=== PATIENT | female | born 1975 | race Caucasian/White ===

== ENCOUNTER → 2018-08-21 16:23 | Outpatient (CLI) | payer BC, SELFPAY ==
[2018-08-21 19:29] LABS: Free T3, Triiodothyronine Free 2.88 pg/mL (2.77-5.27); Free T4, Direct Thyroxine 1.18 ng/dL (0.78-2.19)
[2018-08-21 19:42] LABS: Thyroid Stimulating Hormone 0.36 uIU/mL (0.47-4.68)
== END ==
PROVIDERS: PCP Internal Medicine; Visit Provider Internal Medicine
DX: E03.9 Hypothyroidism, unspecified (principal)
CPT/HCPCS: 36415; 84439; 84443; 84479; 84481

== ENCOUNTER → 2018-11-20 10:37 | Outpatient (CLI) | payer BC, SELFPAY ==
[2018-11-20 11:45] LABS: Free T3, Triiodothyronine Free 2.52 pg/mL (2.77-5.27); Free T4, Direct Thyroxine 0.98 ng/dL (0.78-2.19)
== END ==
PROVIDERS: PCP Internal Medicine; Visit Provider Family Medicine
DX: E03.9 Hypothyroidism, unspecified (principal)
CPT/HCPCS: 36415; 84439; 84443; 84481

== ENCOUNTER → 2018-12-14 11:06 | Outpatient (CLI) | payer BC, SELFPAY ==
--- NOTE | 2018-12-14 | DI.MG.S_ITS ---
BILATERAL DIGITAL SCREENING MAMMOGRAM 3D/2D WITH CAD: 12/14/2018 CLINICAL: Routine screening. Family history of breast cancer. Comparison is made to exams dated: 10/05/2016 mammogram and 09/16/2016 mammogram - [facility]. The tissue of both breasts is heterogeneously dense. This may lower the sensitivity of mammography. Current study was also evaluated with a Computer Aided Detection (CAD) system. There is an oval low density asymmetry with an indistinct margin in the left breast at 11 o'clock posterior depth. No other significant masses, calcifications, or other findings are seen in either breast. IMPRESSION: INCOMPLETE: NEEDS ADDITIONAL IMAGING EVALUATION The oval low density asymmetry in the left breast is indeterminate. Mediolateral and spot compression views as well as additional views with possible ultrasound are recommended. This exam was interpreted at Station ID: [id number]. NOTE: For mammograms, a report in lay terms will be sent to the patient. Approximately 15% of breast malignancies will not be visualized mammographically. In the management of a palpable breast mass, a negative mammogram must not discourage biopsy of a clinically suspicious lesion. Electronically Signed By: Yordy miguel/cayla:12/14/2018 12:11:42 copy to: ANGELA CAZARES letter sent: Additional Imaging Needed ACR BI-RADS Category 0: Incomplete 3340F
== END ==
PROVIDERS: PCP Internal Medicine; Visit Provider Student in an Organized Health Care Education/Training Program
DX: Z12.31 Encounter for screening mammogram for malignant neoplasm of breast (principal); Z80.3 Family history of malignant neoplasm of breast
CPT/HCPCS: 77063; 77067

== ENCOUNTER → 2019-01-01 14:19 | Outpatient (CLI) | payer BC, SELFPAY ==
--- NOTE | 2019-01-01 14:23 | DI.MG.S_ITS ---
UNILATERAL LEFT DIGITAL DIAGNOSTIC MAMMOGRAM 3D/2D WITH ADDITIONAL VIEWS: 01/01/2019 CLINICAL: Additional evaluation requested from prior study. Comparison is made to exams dated: 12/14/2018 mammogram, 10/05/2016 mammogram, and 09/16/2016 mammogram - [facility]. The tissue of left breast is heterogeneously dense. This may lower the sensitivity of mammography. There is an oval low density asymmetry with an indistinct margin in the left breast at 10 o'clock posterior depth. This is less prominent. No other significant masses or calcifications are seen in the breast. IMPRESSION: INCOMPLETE: NEEDS ADDITIONAL IMAGING EVALUATION The oval low density asymmetry in the left breast resembles a lymph node, or cyst and is probably benign. Please see corresponding ultrasound report for more details. A follow-up mammogram in 6 months is recommended to demonstrate stability. Findings and recommendations were conveyed to the patient. This exam was interpreted at Station ID: [id number]. NOTE: For mammograms, a report in lay terms will be sent to the patient. Approximately 15% of breast malignancies will not be visualized mammographically. In the management of a palpable breast mass, a negative mammogram must not discourage biopsy of a clinically suspicious lesion. Electronically Signed By: Melanie box/:01/01/2019 15:40:26 copy to: ANGELA CAZARES ACR BI-RADS Category 0: Incomplete 3340F
--- NOTE | 2019-01-01 14:23 | DI.US.S_ITS ---
LIMITED ULTRASOUND OF LEFT BREAST: 01/01/2019 CLINICAL: Additional evaluation requested from prior study. Comparison is made to exams dated: 01/01/2019 mammogram, 12/14/2018 mammogram, 10/05/2016 mammogram, and 09/16/2016 mammogram - [facility]. Ultrasound of the left breast inner aspect was performed. There is a benign 3 mm cyst in the left breast at 6 o'clock posterior depth. This cyst is anechoic with posterior acoustic enhancement. There also is a benign 5 mm oval cyst in the left breast at 11 o'clock anterior depth. This oval cyst is anechoic with posterior acoustic enhancement. No sonographic abnormalities to correspond to the 3 mm asymmetry seen on mammogram. IMPRESSION: BENIGN No sonographic finding to correspond to the mammographic finding. Other findings on ultrasound are incidental and benign. There is no sonographic evidence of malignancy. The 3 mm cyst in the left breast at 6 o'clock posterior depth is consistent with a simple cyst and is benign. The 5 mm oval cyst in the left breast at 11 o'clock anterior depth is consistent with a simple cyst and is benign. A follow-up mammogram in 6 months is recommended to demonstrate stability. Findings and recommendations were conveyed to the patient. This exam was interpreted at Station ID: [id number]. Electronically Signed By: Melanie box/:01/01/2019 15:50:04 copy to: ANGELA CAZARES letter sent: Followup Recommended Ultrasound BI-RADS: 2 Benign
== END ==
PROVIDERS: Family Provider Specialist; Visit Provider Student in an Organized Health Care Education/Training Program
DX: R92.8 Other abnormal and inconclusive findings on diagnostic imaging of breast (principal); N60.02 Solitary cyst of left breast
CPT/HCPCS: 76642; 77065; G0279

== ENCOUNTER → 2019-02-04 08:37 | Outpatient (CLI) | payer BC, SELFPAY ==
[2019-02-04 10:14] LABS: Alanine Aminotransferase 30 IU/L (9-52); Albumin 4.4 g/dL (3.5-5.0); Albumin Globulin Ratio 1.4 (1.0-2.8); Alkaline Phosphatase 52 U/L (38-126); Aspartate Aminotransferase 25 IU/L (14-36); Bilirubin Total 0.6 mg/dL (0.2-1.3); Bilirubin Unconjugated 0.5 mg/dL (0.0-1.1); Cholesterol 158 mg/dL (140-199); Globulin 3.1 g/dL (1.7-4.1); HDL Cholesterol 48 mg/dL (40-60); HEMOLYSIS < 15 (0-50); LDL Cholesterol Calculated 90 mg/dL (<100); Total Protein 7.5 g/dL (6.3-8.2); Triglycerides 99 mg/dL (35-150)
[2019-02-04 11:10] LABS: Vitamin D 25 Hydroxy (D3) 56.7 ng/mL (30.0-100.0)
== END ==
PROVIDERS: PCP Student in an Organized Health Care Education/Training Program; Visit Provider Student in an Organized Health Care Education/Training Program
DX: E78.2 Mixed hyperlipidemia (principal); R23.2 Flushing; Z13.220 Encounter for screening for lipoid disorders; E55.9 Vitamin D deficiency, unspecified
CPT/HCPCS: 36415; 80061; 80076; 82306

== ENCOUNTER → 2019-04-19 15:02 | Outpatient (CLI) | payer BC, SELFPAY ==
[2019-04-19 16:57] LABS: Free T4, Direct Thyroxine 0.91 ng/dL (0.78-2.19)
[2019-04-19 17:11] LABS: Thyroid Stimulating Hormone 1.62 uIU/mL (0.47-4.68)
== END ==
PROVIDERS: PCP Family Medicine; Visit Provider Student in an Organized Health Care Education/Training Program
DX: E03.9 Hypothyroidism, unspecified (principal)
CPT/HCPCS: 36415; 84439; 84443; 84481

== ENCOUNTER → 2019-10-28 08:10 | Outpatient (CLI) | payer BC, SELFPAY ==
--- NOTE | 2019-10-28 08:11 | DI.MG.S_ITS ---
UNILATERAL LEFT DIGITAL DIAGNOSTIC MAMMOGRAM 3D/2D SHORT-TERM FOLLOW-UP: 10/28/2019 CLINICAL: Patient returns for a 6 month follow up of the left breast. Comparison is made to exams dated: 01/01/2019 mammogram, 12/14/2018 mammogram, and 10/05/2016 mammogram - [facility]. The tissue of left breast is heterogeneously dense. This may lower the sensitivity of mammography. There is a new 0.5 cm oval low density focal asymmetry with an obscured, indistinct, and circumscribed margin in the left breast at 2 o'clock posterior depth. There also is an oval low density focal asymmetry with a circumscribed margin in the left breast at 11 o'clock posterior depth. This is not significantly changed. No other significant masses or calcifications are seen in the breast. IMPRESSION: INCOMPLETE: NEEDS ADDITIONAL IMAGING EVALUATION The new 0.5 cm oval low density focal asymmetry in the left breast at 2 o'clock posterior depth is indeterminate. An ultrasound is recommended. The oval low density focal asymmetry in the left breast at 11 o'clock posterior depth is probably benign. A follow-up ultrasound in 6 months is recommended. This exam was interpreted at Station ID: [id number]. NOTE: For mammograms, a report in lay terms will be sent to the patient. Approximately 15% of breast malignancies will not be visualized mammographically. In the management of a palpable breast mass, a negative mammogram must not discourage biopsy of a clinically suspicious lesion. Electronically Signed By: Yordy miguel/cayla:10/28/2019 09:19:13 copy to: ANGELA JIMENEZ BI-RADS Category 0: Incomplete 3340F
--- NOTE | 2019-10-28 10:26 | DI.US.S_ITS ---
LIMITED ULTRASOUND OF LEFT BREAST: 10/28/2019 CLINICAL: Patient returns today to evaluate a density in the left breast. Comparison is made to exams dated: 10/28/2019 mammogram, 01/01/2019 mammogram, 12/14/2018 mammogram, 10/05/2016 mammogram, and 09/16/2016 mammogram - [facility]. Color flow and real-time ultrasound of the left breast 2-3 o'clock region were performed on the areas of interest. There is a 0.8 cm x 0.6 cm x 0.5 cm oval complicated cyst with a septated internal wall in the left breast at 3 o'clock middle depth. This oval complicated cyst is hypoechoic with internal echoes and posterior acoustic enhancement. This likely correlates with mammography findings. Color flow imaging demonstrates that there is no vascularity present. IMPRESSION: PROBABLY BENIGN The 0.8 cm x 0.6 cm x 0.5 cm oval complicated cyst in the left breast is consistent with a complicated cyst and is probably benign. Follow-up mammogram and ultrasound in 6 months is recommended. A follow-up mammogram and an ultrasound in 6 months is recommended to demonstrate stability. This exam was interpreted at Station ID: [id number]. Electronically Signed By: Yordy miguel/:10/28/2019 10:48:55 copy to: ANGELA CAZARES letter sent: Followup Recommended Ultrasound BI-RADS: 3 Probably benign
[2019-10-28 16:53] LABS: Add Manual Diff / Slide Review NO; Basophils Absolute Auto 0 /uL (0-100); Basophils Percent Auto 0.6 % (0-2); Eosinophils Absolute Auto 100 /uL (0-450); Eosinophils Percent Auto 1.5 % (2-4); Hematocrit 39.6 % (36-46); Hemoglobin 13.4 g/dL (12.0-16.0); Lymphocytes Absolute Auto 2300 /uL (1100-4500); Lymphocytes Percent Auto 34.4 % (25-40); Mean Corpuscular HGB Conc 33.9 % (30-36); Mean Corpuscular Hemoglobin 32.1 PG (26-34); Mean Corpuscular Volume 94.8 fL (80-100); Monocytes Absolute Auto 600 /uL (0-900); Monocytes Percent Auto 8.1 % (3-14); Neutrophils Absolute Auto 3800 /uL (1500-7000); Neutrophils Percent Auto 55.4 % (50-75); Platelet Count 232 X10^3/uL (150-400); Red Blood Cell Count 4.18 X10^6/uL (4.0-5.2); White Blood Cell Count 6.8 X10^3/uL (4.5-11.0)
[2019-10-28 17:28] LABS: HEMOLYSIS < 15 (0-50); Iron 152 ug/dL (37-170)
[2019-10-28 17:40] LABS: Percent Iron Saturation 58 % (15-50); Total Iron Binding Capacity 261 ug/dL (265-497); Transferrin 214 mg/dL (206-381)
[2019-10-28 17:46] LABS: Vitamin D 25 Hydroxy (D3) 52.1 ng/mL (30.0-100.0)
[2019-10-28 17:48] LABS: Free T3, Triiodothyronine Free 3.31 pg/mL (2.77-5.27); Free T4, Direct Thyroxine 0.91 ng/dL (0.78-2.19)
[2019-10-28 18:01] LABS: Thyroid Stimulating Hormone 1.15 uIU/mL (0.47-4.68)
[2019-10-28 18:05] LABS: Ferritin 75.6 ng/mL (6.27-137)
[2019-10-28 18:19] LABS: Vitamin B12 665 pg/mL (239-931)
== END ==
PROVIDERS: Nurse Practitioner; PCP Student in an Organized Health Care Education/Training Program; Visit Provider Student in an Organized Health Care Education/Training Program
DX: R92.8 Other abnormal and inconclusive findings on diagnostic imaging of breast (principal); N60.02 Solitary cyst of left breast; D51.3 Other dietary vitamin B12 deficiency anemia; E03.9 Hypothyroidism, unspecified; N80.3 Endometriosis of pelvic peritoneum; N95.1 Menopausal and female climacteric states; R53.83 Other fatigue
CPT/HCPCS: 36415; 76642; 77065; 82306; 82607; 82728; 83540; 83550; 84439; 84443; 84481; 85025; G0279

== ENCOUNTER → 2020-02-28 09:42 | Outpatient (CLI) | payer BC, SELFPAY ==
[2020-02-28 11:40] LABS: Free T3, Triiodothyronine Free 2.97 pg/mL (2.77-5.27); Free T4, Direct Thyroxine 1.08 ng/dL (0.78-2.19)
[2020-02-28 11:53] LABS: Thyroid Stimulating Hormone 0.58 uIU/mL (0.47-4.68)
== END ==
PROVIDERS: PCP Family Medicine; Referring Provider Family Medicine; Visit Provider Family Medicine
DX: E03.9 Hypothyroidism, unspecified (principal)
CPT/HCPCS: 36415; 84439; 84443; 84481

== ENCOUNTER → 2020-08-14 09:05 | Outpatient (CLI) | payer OTHER, SELFPAY ==
[2020-08-14 09:48] LABS: Add Manual Diff / Slide Review NO; Basophils Absolute Auto 0 /uL (0-100); Basophils Percent Auto 0.6 % (0-2); Eosinophils Absolute Auto 100 /uL (0-450); Eosinophils Percent Auto 1.7 % (2-4); Hematocrit 39.3 % (36-46); Hemoglobin 13.2 g/dL (12.0-16.0); Lymphocytes Absolute Auto 2200 /uL (1100-4500); Lymphocytes Percent Auto 33.8 % (25-40); Mean Corpuscular HGB Conc 33.6 % (30-36); Mean Corpuscular Hemoglobin 31.9 PG (26-34); Mean Corpuscular Volume 94.9 fL (80-100); Monocytes Absolute Auto 500 /uL (0-900); Monocytes Percent Auto 7.4 % (3-14); Neutrophils Absolute Auto 3700 /uL (1500-7000); Neutrophils Percent Auto 56.5 % (50-75); Platelet Count 225 X10^3/uL (150-400); Red Blood Cell Count 4.14 X10^6/uL (4.0-5.2); Red Cell Distribution Width 12.7 % (11.6-14.8); White Blood Cell Count 6.5 X10^3/uL (4.5-11.0)
[2020-08-14 10:31] LABS: Free T4, Direct Thyroxine 1.29 ng/dL (0.78-2.19)
== END ==
PROVIDERS: PCP Family Medicine; Referring Provider Specialist; Visit Provider Specialist
DX: E03.9 Hypothyroidism, unspecified (principal)
CPT/HCPCS: 36415; 84439; 84443; 84481; 85025

== ENCOUNTER → 2020-09-01 08:39 | Outpatient (CLI) | payer OTHER, SELFPAY ==
--- NOTE | 2020-09-01 08:40 | DI.MG.S_ITS ---
BILATERAL DIGITAL DIAGNOSTIC MAMMOGRAM 3D/2D SHORT-TERM FOLLOW-UP: 09/01/2020 CLINICAL: Patient returns for a 6 month follow up of the left breast, due for bilateral exam. Comparison is made to exams dated: 10/28/2019 mammogram, 01/01/2019 mammogram, and 12/14/2018 mammogram - [facility]. The tissue of both breasts is heterogeneously dense. This may lower the sensitivity of mammography. There is a 0.5 cm oval low density focal asymmetry with an obscured, indistinct, and circumscribed margin in the left breast at 2 o'clock posterior depth. This is not significantly changed. There also is an oval low density focal asymmetry with a circumscribed margin in the left breast at 11 o'clock posterior depth. This is not significantly changed. No other significant masses, calcifications, or other findings are seen in either breast. IMPRESSION: INCOMPLETE: NEEDS ADDITIONAL IMAGING EVALUATION The 0.5 cm oval low density focal asymmetry in the left breast at 2 o'clock posterior depth is indeterminate. An ultrasound is recommended for further evaluation and is scheduled to immediately follow this study. The oval low density focal asymmetry in the left breast at 11 o'clock posterior depth is probably benign. Further evaluation with sonogram is recommended which is scheduled to immediately follow this examination. This exam was interpreted at Station ID: [id number]. NOTE: For mammograms, a report in lay terms will be sent to the patient. Approximately 15% of breast malignancies will not be visualized mammographically. In the management of a palpable breast mass, a negative mammogram must not discourage biopsy of a clinically suspicious lesion. Electronically Signed By: Henri Diaz M.D. aty/:09/01/2020 09:21:57 copy to: Romario Thompson [facility] BI-RADS Category 0: Incomplete 3340F
--- NOTE | 2020-09-01 08:40 | DI.US.S_ITS ---
ULTRASOUND OF LEFT BREAST: 09/01/2020 CLINICAL: 6 month follow-up of cysts. Comparison is made to exams dated: 09/01/2020 mammogram, 10/28/2019 ultrasound, 10/28/2019 mammogram, 01/01/2019 ultrasound, 01/01/2019 mammogram, and 12/14/2018 mammogram - [facility]. Color flow and real-time ultrasound of the left breast were performed. Batista scale images of the real-time examination were reviewed. There is a 0.7 cm x 0.7 cm x 0.3 cm oval complicated cyst with a septated internal wall in the left breast at 3 o'clock middle depth 6 cm from the nipple. This oval complicated cyst is hypoechoic with internal echoes and posterior acoustic enhancement. This abnormality is not significantly changed and correlates with mammography findings. Color flow imaging demonstrates that there is no vascularity present. IMPRESSION: PROBABLY BENIGN The 0.7 cm x 0.7 cm x 0.3 cm oval complicated cyst in the left breast is consistent with a complicated cyst and is probably benign. A follow-up mammogram and an ultrasound in 12 months is recommended to document continued stability. Findings and recommendations were conveyed to the patient during today's evaluation. This exam was interpreted at Station ID: [id number]. Electronically Signed By: Henri Diaz M.D. aty/:09/01/2020 19:38:02 copy to: Romario Thompson letter sent: Followup Recommended Ultrasound BI-RADS: 3 Probably benign
== END ==
PROVIDERS: PCP Family Medicine; Referring Provider Specialist; Visit Provider Specialist
DX: R92.8 Other abnormal and inconclusive findings on diagnostic imaging of breast (principal); N60.02 Solitary cyst of left breast
CPT/HCPCS: 76642; 77066; G0279

== ENCOUNTER → 2020-10-26 12:20 | Outpatient (CLI) | payer OTHER, SELFPAY ==
[2020-10-26 13:43] LABS: Free T3, Triiodothyronine Free 4.36 pg/mL (2.77-5.27); Free T4, Direct Thyroxine 1.81 ng/dL (0.78-2.19)
[2020-10-26 13:57] LABS: Thyroid Stimulating Hormone < 0.015 uIU/mL (0.47-4.68)
== END ==
PROVIDERS: PCP Family Medicine; Referring Provider Family Medicine; Visit Provider Family Medicine
DX: E03.9 Hypothyroidism, unspecified (principal); R53.83 Other fatigue
CPT/HCPCS: 36415; 84439; 84443; 84481

== ENCOUNTER → 2020-12-18 09:27 | Outpatient (CLI) | payer OTHER, SELFPAY ==
[2020-12-18 10:36] LABS: Add Manual Diff / Slide Review NO; Basophils Absolute Auto 100 /uL (0-100); Basophils Percent Auto 0.8 % (0-2); Eosinophils Absolute Auto 100 /uL (0-450); Eosinophils Percent Auto 0.8 % (2-4); Hematocrit 45.6 % (36-46); Hemoglobin 14.9 g/dL (12.0-16.0); Lymphocytes Absolute Auto 2100 /uL (1100-4500); Lymphocytes Percent Auto 30.1 % (25-40); Mean Corpuscular HGB Conc 32.7 % (30-36); Mean Corpuscular Hemoglobin 30.9 PG (26-34); Mean Corpuscular Volume 94.5 fL (80-100); Monocytes Absolute Auto 400 /uL (0-900); Monocytes Percent Auto 6.5 % (3-14); Neutrophils Absolute Auto 4300 /uL (1500-7000); Neutrophils Percent Auto 61.8 % (50-75); Platelet Count 234 X10^3/uL (150-400); Red Blood Cell Count 4.83 X10^6/uL (4.0-5.2); White Blood Cell Count 6.9 X10^3/uL (4.5-11.0)
[2020-12-18 11:15] LABS: Free T3, Triiodothyronine Free 4.93 pg/mL (2.77-5.27); Free T4, Direct Thyroxine 1.16 ng/dL (0.78-2.19)
[2020-12-18 11:16] LABS: Alanine Aminotransferase 39 IU/L (<35); Albumin 4.8 g/dL (3.5-5.0); Albumin Globulin Ratio 1.3 (1.0-2.8); Alkaline Phosphatase 81 U/L (38-126); Aspartate Aminotransferase 31 IU/L (14-36); BUN Creatinine Ratio 26.6 (6-22); Bilirubin Total 0.6 mg/dL (0.2-1.3); Blood Urea Nitrogen 17 mg/dL (7-17); Calcium 9.8 mg/dL (8.4-10.2); Carbon Dioxide 32 mmol/L (22-32); Chloride 104 mmol/L (98-107); Estimated Glomerular Filt Rate > 60.0 mL/min (>60); Globulin 3.7 g/dL (1.7-4.1); Glucose 85 mg/dL (70-100); HEMOLYSIS < 15 (0-50); Potassium 4.1 mmol/L (3.4-5.1); Sodium 141 mmol/L (137-145); Total Protein 8.5 g/dL (6.3-8.2)
[2020-12-18 11:19] LABS: C-Reactive Protein Quant < 0.5 mg/dL (<1.0)
[2020-12-18 11:34] LABS: Thyroid Stimulating Hormone < 0.015 uIU/mL (0.47-4.68)
[2020-12-18 12:10] LABS: Erythrocyte Sedimentation Rate 4 MM/HR (0-20)
== END ==
PROVIDERS: PCP Internal Medicine; Referring Provider Internal Medicine; Visit Provider Internal Medicine
DX: E03.9 Hypothyroidism, unspecified (principal); F51.01 Primary insomnia; N95.1 Menopausal and female climacteric states
CPT/HCPCS: 36415; 80053; 84439; 84443; 84481; 85025; 85651; 86140

== ENCOUNTER → 2021-03-05 15:33 | Outpatient (CLI) | payer OTHER, SELFPAY ==
[2021-03-05 16:47] LABS: BUN Creatinine Ratio 21.4 (6-22); Blood Urea Nitrogen 12 mg/dL (7-17); Calcium 9.1 mg/dL (8.4-10.2); Carbon Dioxide 28 mmol/L (22-32); Chloride 106 mmol/L (98-107); Estimated Glomerular Filt Rate > 60.0 mL/min (>60); Glucose 89 mg/dL (70-100); HEMOLYSIS 24 (0-50); Potassium 3.9 mmol/L (3.4-5.1); Sodium 142 mmol/L (137-145)
[2021-03-05 19:27] LABS: Free T3, Triiodothyronine Free 2.95 pg/mL (2.77-5.27)
[2021-03-05 19:41] LABS: Thyroid Stimulating Hormone 4.31 uIU/mL (0.47-4.68)
== END ==
PROVIDERS: PCP Internal Medicine; Referring Provider Internal Medicine; Visit Provider Internal Medicine
DX: E03.9 Hypothyroidism, unspecified (principal); N95.1 Menopausal and female climacteric states
CPT/HCPCS: 36415; 80048; 83001; 84443; 84481

== ENCOUNTER → 2022-08-09 10:48 | Outpatient (CLI) | payer OTHER, SELFPAY ==
[2022-08-09 12:53] LABS: Influenza A - CEPHEID Flu A NEGATIVE (NEGATIVE); Influenza B - CEPHEID Flu B NEGATIVE (NEGATIVE); Respiratory Syncytial Virus Negative (Negative)
[2022-08-09 12:54] LABS: COVID-19 CEPHEID PCR (VTM/NP) Negative (Negative)
== END ==
PROVIDERS: PCP Internal Medicine; Visit Provider Family Medicine
DX: R05.9 Cough, unspecified (principal); R06.02 Shortness of breath
CPT/HCPCS: 0241U

== ENCOUNTER → 2022-08-09 10:57 | Outpatient (CLI) | payer OTHER, SELFPAY ==
--- NOTE | 2022-08-09 10:59 | DI.RAD.S_ITS ---
PROCEDURE: XR CHEST 2V INDICATIONS: Three weeks of cough. TECHNIQUE: 2 views of the chest were acquired. COMPARISON: None. FINDINGS: Surgical changes and devices: None. Lungs and pleura: Lungs are clear. No pleural effusions or pneumothorax. Mediastinum: Mediastinal contours are normal. Heart size is normal. Bones and chest wall: No suspicious bony abnormalities. Soft tissues appear unremarkable. IMPRESSION: No acute cardiopulmonary abnormality. Dictated by: Bill Brown M.D. on 08/09/2022 at 16:51 Approved by: Bill Brown M.D. on 08/09/2022 at 16:55
[2022-08-09 11:36] LABS: D Dimer < 215 ng/ml (<500)
== END ==
PROVIDERS: PCP Internal Medicine; Referring Provider Family Medicine; Visit Provider Family Medicine
DX: R05.9 Cough, unspecified (principal); R06.02 Shortness of breath
CPT/HCPCS: 0241U; 36415; 71046; 85379

== ENCOUNTER → 2022-08-23 07:35 | Outpatient (CLI) | payer OTHER, SELFPAY ==
[2022-08-23 08:33] LABS: Alanine Aminotransferase 30 IU/L (<35); Albumin 4.2 g/dL (3.5-5.0); Albumin Globulin Ratio 1.3 (1.0-2.8); Alkaline Phosphatase 66 U/L (38-126); Aspartate Aminotransferase 25 IU/L (14-36); Bilirubin Total 0.7 mg/dL (0.2-1.3); Blood Urea Nitrogen 17 mg/dL (7-17); Calcium 8.9 mg/dL (8.4-10.2); Carbon Dioxide 30 mmol/L (22-32); Chloride 107 mmol/L (98-107); Estimated Glomerular Filt Rate > 60 mL/min (>60); Globulin 3.2 g/dL (1.7-4.1); Glucose 101 mg/dL (70-100); HEMOLYSIS < 15 (0-50); Lipase 137 U/L (23-300); Potassium 4.8 mmol/L (3.4-5.1); Sodium 144 mmol/L (137-145); Total Protein 7.4 g/dL (6.3-8.2)
[2022-08-23 09:06] LABS: Free T4, Direct Thyroxine 0.69 ng/dL (0.78-2.19)
[2022-08-23 09:20] LABS: Thyroid Stimulating Hormone 4.93 uIU/mL (0.47-4.68)
== END ==
PROVIDERS: PCP Internal Medicine; Referring Provider Internal Medicine; Visit Provider Internal Medicine
DX: E03.9 Hypothyroidism, unspecified (principal); Z79.899 Other long term (current) drug therapy
CPT/HCPCS: 36415; 80053; 83690; 84439; 84443

== ENCOUNTER → 2023-04-06 14:29 | Outpatient (CLI) | payer OTHER, SELFPAY ==
[2023-04-06 15:33] LABS: Free T3, Triiodothyronine Free 3.82 pg/mL (2.77-5.27); Free T4, Direct Thyroxine 0.88 ng/dL (0.78-2.19)
[2023-04-06 15:46] LABS: Thyroid Stimulating Hormone 3.35 uIU/mL (0.47-4.68)
== END ==
PROVIDERS: PCP Internal Medicine; Referring Provider Internal Medicine; Visit Provider Internal Medicine
DX: E03.9 Hypothyroidism, unspecified (principal)
CPT/HCPCS: 36415; 84439; 84443; 84481

== ENCOUNTER → 2023-07-14 15:08 | Outpatient (CLI) | payer OTHER, SELFPAY | PROVIDERS: PCP Internal Medicine; Visit Provider Nurse Practitioner Family | DX: N39.0 Urinary tract infection, site not specified (principal); N89.8 Other specified noninflammatory disorders of vagina | CPT/HCPCS: 87077; 87086; 87186; 87210 ==

== ENCOUNTER → 2023-07-21 10:50 | Outpatient (CLI) | payer OTHER, SELFPAY ==
[2023-07-21 13:07] LABS: Alanine Aminotransferase 39 IU/L (<35); Albumin 4.5 g/dL (3.5-5.0); Albumin Globulin Ratio 1.5 (1.0-2.8); Alkaline Phosphatase 68 U/L (38-126); Aspartate Aminotransferase 28 IU/L (14-36); BUN Creatinine Ratio 21.3 (6-22); Bilirubin Unconjugated 0.8 mg/dL (0.0-1.1); Blood Urea Nitrogen 13 mg/dL (7-17); Calcium 9.7 mg/dL (8.4-10.2); Carbon Dioxide 28 mmol/L (22-32); Chloride 104 mmol/L (98-107); Estimated Glomerular Filt Rate > 60 mL/min (>60); Glucose 91 mg/dL (70-100); HEMOLYSIS < 15 (0-50); Potassium 4.4 mmol/L (3.4-5.1); Sodium 139 mmol/L (137-145); Total Protein 7.5 g/dL (6.3-8.2)
== END ==
PROVIDERS: PCP Internal Medicine; Referring Provider Internal Medicine; Visit Provider Internal Medicine
DX: R82.2 Biliuria (principal)
CPT/HCPCS: 36415; 80048; 80076